=== PATIENT | female | born 1995 | race American Indian/Alaskan Native ===

== ENCOUNTER 2018-07-11 15:48 | Inpatient (IN) | payer BC, SELFPAY ==
--- NOTE | 2018-07-11 16:02 | Emergency Department Report ---
Blank Doc - Documentation Documentation: This is a 22-year-old female that presents with abdominal pain with nausea vom iting. Stated was told her PCP with enlarged spleen. Stated has history of enlarged spleen. This initial assessment/diagnostic orders/clinical plan/treatment(s) is/are subject to change based on patient's health status, clinical progression and re- assessment by fellow clinical providers in the ED. Further treatment and workup at subsequent clinical providers discretion. Patient/guardians urged not to elope from the ED as their condition may be serious if not clinically assessed and managed. Initial orders include: 1- Patient sent to MAIN for further evaluation and treatment 2- labs 3- UA
[2018-07-11 16:38] LABS: Alanine Aminotransferase 8 units/L (7-56); Albumin 4.3 g/dL (3.9-5); BUN/Creatinine Ratio 11; Blood Urea Nitrogen 9 mg/dL (7-17); Calcium 9.2 mg/dL (8.4-10.2); Hemolysis Index 4
[2018-07-11 16:40] LABS: Bilirubin,Direct < 0.2 mg/dL (0-0.2)
[2018-07-11 16:54] LABS: Hematocrit 21.2 % (30.3-42.9); Hemoglobin 6.9 gm/dl (10.1-14.3); Mean Corpuscular HGB Conc 33 % (30-34); Mean Corpuscular Volume 82 fl (79-97); Platelet Count 804 K/mm3 (140-440); Red Blood Count 2.58 M/mm3 (3.65-5.03)
[2018-07-11 17:06] LABS: Red Cell Distribution Width 22.7 % (13.2-15.2)
--- NOTE | 2018-07-11 18:33 | Emergency Department Report ---
HPI - General Chief Complaint: Abdominal Pain Time Seen by Provider: 07/11/18 16:01 - HPI HPI: 22-year-old AA female presents to the emergency department with complaint of some intermittent abdominal pain, nausea and vomiting, as well as the complaint of a very enlarged spleen. The patient has a history of CML. Last week she went to see a vascular surgeon secondary to some varicose veins that popped up. An ultrasound was done of her abdomen that showed splenomegaly at 24 cm. Patient does not have any primary care physician, policy intern oncologist. She is not currently undergoing any type of chemotherapy or radiation. She has not taken anything for her symptoms prior to presentation. ED Past Medical Hx - Past Medical History Previous Medical History?: Yes Additional medical history: leukemia - Surgical History Past Surgical History?: No - Social History Smoking Status: Never Smoker Substance Use Type: None - Medications Home Medications: Home Medications Medication Instructions Recorded Confirmed Last Taken Type No Known Home Medications [No 07/03/13 07/03/13 Unknown History Reported Home Medications] ED Review of Systems ROS: Stated complaint: ENLARGED SPLEEN/PAIN Other details as noted in HPI Comment: All other systems reviewed and negative Constitutional: denies: chills, fever Eyes: denies: eye pain, vision change ENT: denies: ear pain, throat pain Respiratory: denies: cough, shortness of breath Cardiovascular: denies: chest pain, palpitations Gastrointestinal: abdominal pain. denies: diarrhea Genitourinary: urgency. denies: dysuria, discharge Musculoskeletal: denies: back pain, arthralgia Skin: denies: rash, lesions Neurological: denies: headache, weakness Physical Exam - Physical Exam Vital Signs: Vital Signs 07/11/18 15:56 Temperature 98.3 F Pulse Rate 98 H Respiratory 16 Rate Blood Pressure 131/58 O2 Sat by Pulse 98 Oximetry Physical Exam: GENERAL: The patient is well-developed well-nourished. HEENT: Normocephalic. Atraumatic. Patient has moist mucous membranes. EYES: Extraocular motions are intact. NECK: Supple. Trachea is midline. CHEST/LUNGS: Clear to auscultation. There is no respiratory distress noted. HEART/CARDIOVASCULAR: Regular. There is no tachycardia. There is no obvious murmur. ABDOMEN: Abdomen is soft, nontender. Patient has normal bowel sounds. There is no abdominal distention. SKIN: Skin is warm and dry. NEURO: The patient is awake, alert, and oriented. The patient is cooperative. The patient has no focal neurologic deficits. The patient has normal speech. MUSCULOSKELETAL: There is no tenderness or deformity. There is no limitation range of motion. There is no evidence of acute injury. ED Course Vital Signs 07/11/18 15:56 Temperature 98.3 F Pulse Rate 98 H Respiratory 16 Rate Blood Pressure 131/58 O2 Sat by Pulse 98 Oximetry - Consultations Consultation #1: 07/11/18 22:44 I spoke to the policy intern/oncologist professor of public administration, Dr. Reese regarding this patient. He will consult on the patient. He asked for a uric acid level, phosphorus, magnesium, an LDH level to be obtained. He recommended giving 500 mg of hydroxyurea 1. He suggested rechecking a CBC and if the hemoglobin drops below 6.5 to give one unit of packed red blood cells as a transfusion. ED Medical Decision Making - Lab Data Result diagrams: 07/11/18 22:02 07/11/18 16:09 - Radiology Data Radiology results: report reviewed PROCEDURE: CT ABDOMEN PELVIS W CON HISTORY: Abd pain, hx of splenomegaly FINDINGS: Contrast-enhanced CT of the abdomen and pelvis was performed following the intravenous administration of iodinated contrast. No prior study is available for comparison. The heart is normal in size. The lung bases appear clear. ABDOMEN: No suspect focal hepatic lesion is seen. The liver is enlarged extending for 23.9 cm along the long axis of the body. The spleen is extremely large, measuring 17.7 x 8.6 x 26.8 cm. No suspect focal splenic mass is identified. Clinical correlation is advised to evaluate for potential glycogen storage disease or other noncirrhotic cause of hepatosplenomegaly. The gallbladder is unremarkable. No focal pancreatic lesion is seen. The adrenal glands are within normal limits. The left kidney is medially displaced by the greatly enlarged spleen. No renal abnormality is seen. The abdominal aorta is normal in size. There is no hemoperitoneum. Pelvis: There is a normal appendix. There is no evidence of diverticulitis. There is no adnexal mass. The urinary bladder is within normal limits. IMPRESSION: ABDOMEN: Hepatomegaly Marked splenomegaly Pelvis: No evidence of diverticulitis This document is electronically signed by David Ryan MD., July 11 2018 09:06:14 PM ET Transcribed By: NARCISA Dictated By: DAVID RYAN MD Electronically Authenticated By: DAVID RYAN MD Signed Date/Time: 07/11/182107 - Medical Decision Making This patient originally came in secondary to a ultrasound at her vascular surgeon's office showing severe splenomegaly. As part of workup here she was found have a extremely elevated leukocytosis of 380,000 as well as thrombocytosis and anemia with a hemoglobin of 6.9. This appears consistent with the patient's history of CML. At this time she does not have any significant abdominal pain. A CT of the abdomen and pelvis with IV contrast was done that shows the splenomegaly measuring as long as 27 cm but otherwise no sign of infection, specific mass or lesions. Hematology/oncology was contacted and will consult on the patient. The repeat CBC came back at 6.14 hemoglobin and therefore the patient will receive 1 unit of packed red blood cells as transfusion. The patient will be admitted to the hospital for further evaluation and treatment and was accepted for admission by the hospitalist, Dr. Ellis. - Differential Diagnosis CML, Leukemoid reaction, Mononucleosis Critical Care Time: Yes Critical care time in (mins) excluding proc time.: 35 Critical care attestation.: If time is entered above; I have spent that time in minutes in the direct care of this critically ill patient, excluding procedure time. Critical care time spent on this patient during her initial evaluation, multiple re-evaluations, ordering and interpretation of labs and imaging, discussion with the hospitalist, discussion with the oncologist/policy intern, discussion with the family. This patient has a higher probability of clinically significant, sudden, or life-threatening deterioration that has required multiple evaluations and direct attention, intervention, and management. Critical Care Time: 35 minutes ED Disposition Clinical Impression: CML (chronic myelocytic leukemia), Splenomegaly Leukocytosis Qualifiers: Leukocytosis type: unspecified Qualified Code(s): D72.829 - Elevated white blood cell count, unspecified Disposition: OP ADMIT IP TO THIS HOSP Is pt being admited?: No Condition: Serious Instructions: Abdominal Pain (ED) Referrals: ALONDRA LAI MD [Primary Care Provider] - 3-5 Days Time of Disposition: 22:50
[2018-07-11 19:49] LABS: Uric Acid 5.6 mg/dL (3.5-7.6)
[2018-07-11] MEDS ORDERED: NACL 0.9% 1000 ML 1,000 ML IV ONE (19:57)
[2018-07-11 20:19] LABS: Band Neutrophils # (Manual) 7.6 K/mm3; Basophils % (Manual) 0 % (0.0-1.8); Myelocytes # (Manual) 38.1 K/mm3; RBC Morphology Normal; Total Cells Counted 100
--- NOTE | 2018-07-11 21:08 | Cat Scan Report ---
PROCEDURE: CT ABDOMEN PELVIS W CON HISTORY: Abd pain, hx of splenomegaly FINDINGS: Contrast-enhanced CT of the abdomen and pelvis was performed following the intravenous administration of iodinated contrast. No prior study is available for comparison. The heart is normal in size. The lung bases appear clear. ABDOMEN: No suspect focal hepatic lesion is seen. The liver is enlarged extending for 23.9 cm along t he long axis of the body. The spleen is extremely large, measuring 17.7 x 8.6 x 26.8 cm. No suspect focal splenic mass is ident ified. Clinical correlation is advised to evaluate for potential glycogen storage disease or other no ncirrhotic cause of hepatosplenomegaly. The gallbladder is unremarkable. No focal pancreatic lesion is seen. The adrenal glands are within normal limits. The left kidney is medially displaced by the greatly enl arged spleen. No renal abnormality is seen. The abdominal aorta is normal in size. There is no hemoperitoneum. Pelvis: There is a normal appendix. There is no evidence of diverticulitis. There is no adnexal mass. The uri nary bladder is within normal limits. IMPRESSION: ABDOMEN: Hepatomegaly Marked splenomegaly Pelvis: No evidence of diverticulitis This document is electronically signed by Vel Ryan MD., July 11 2018 09:06:14 PM ET
[2018-07-11 21:30] LABS: Bilirubin,Urine NEG (Negative); Blood,Urine NEG (Negative); Color,Urine Straw (Yellow); Mucus,Urine FEW /HPF; Protein,Urine <15 mg/dL mg/dL (Negative); Urobilinogen,Urine < 2.0 mg/dL (<2.0)
[2018-07-11] MEDS ORDERED: HYDREA PO SCH (22:00)
[2018-07-11 22:24] LABS: Hemoglobin 6.1 gm/dl (10.1-14.3); Mean Corpuscular HGB Conc 32 % (30-34); Mean Corpuscular Volume 80 fl (79-97); Platelet Count 778 K/mm3 (140-440)
[2018-07-11 22:30] LABS: Hematocrit 19.3 % (30.3-42.9); Red Cell Distribution Width 22.3 % (13.2-15.2)
[2018-07-11] MEDS ORDERED: SODIUM CHLORIDE FLUSH SYRINGE 10 ML IV PRN (22:35)
[2018-07-11] MEDS ORDERED: TYLENOL PO PRN (22:35)
[2018-07-11] MEDS ORDERED: PERCOCET 5/325 PO PRN (22:35)
[2018-07-11] MEDS ORDERED: ZOFRAN IV PRN (22:35)
[2018-07-11] MEDS ORDERED: NACL 0.9% 500 ML 500 ML IV ONE (22:40)
--- NOTE | 2018-07-11 23:59 | History and Physical Report ---
History of Present Illness Date of examination: 07/11/18 Date of admission: 07/11/18 22:35 Chief complaint: Nausea without vomiting History of present illness: Patient is a 22-year-old -[place] female with a history of CML who presented to the ED on account of one month history of nausea without vomiting. She has associated left lower abdominal pain, urinary frequency and urgency. She denies fever, chills, constipation or diarrhea. No chest pain, shortness of breath, palpitation, cough, sore throat, runny nose or congestion, leg swelling, orthopnea or PND. No headaches, lightheadedness, syncope or loss of consciousness. Patient stated that she was recently found to have enlarged spleen during an evaluation for varicose vein. Past History Past Medical History: other (CML status post chemotherapy in remission since 2016, varicose vein, history of blood transfusion) Past Surgical History: No surgical history Social history: no significant social history (she denies tobacco, alcohol or illicit drug use) Family history: other (reviewed and noncontributory) Medications and Allergies Allergies Allergy/AdvReac Type Severity Reaction Status Date / Time No Known Allergies Allergy Unverified 07/03/13 08:29 Home Medications Medication Instructions Recorded Confirmed Last Taken Type No Known Home Medications [No 07/03/13 07/03/13 Unknown History Reported Home Medications] Active Meds: Active Medications Acetaminophen (Tylenol) 650 mg PO Q4H PRN PRN Reason: Pain MILD(1-3)/Fever >100.5/COOK Hydroxyurea (Hydrea) 500 mg PO QDAY [facility] Last Admin: 07/11/18 23:23 Dose: 500 mg Documented by: Ondansetron HCl (Zofran) 4 mg IV Q8H PRN PRN Reason: Nausea And Vomiting Oxycodone/Acetaminophen (Percocet 5/325) 1 tab PO Q6H PRN PRN Reason: Pain, Moderate (4-6) Sodium Chloride (Sodium Chloride Flush Syringe 10 Ml) 10 ml IV BID JOEL Sodium Chloride (Sodium Chloride Flush Syringe 10 Ml) 10 ml IV PRN PRN PRN Reason: LINE FLUSH Review of Systems All systems: negative (except as documented in the HPI, all other systems were reviewed and negative) Exam - Constitutional Vitals: Temp Pulse Resp BP Pulse Ox 98.5 F 96 H 16 123/54 98 07/11/18 18:47 07/11/18 20:30 07/11/18 20:30 07/11/18 20:30 07/11/18 20:30 General appearance: Present: no acute distress - EENT Eyes: Present: PERRL, EOM intact ENT: hearing intact, clear oral mucosa - Neck Neck: Present: supple, normal ROM - Respiratory Respiratory effort: normal Respiratory: bilateral: CTA - Cardiovascular Rhythm: regular Heart Sounds: Present: S1 & S2. Absent: rub, click - Extremities Extremities: No edema Peripheral Pulses: within normal limits - Abdominal General gastrointestinal: Present: soft, tender (LT LQ), non-distended, normal bowel sounds Female genitourinary: Present: deferred - Integumentary Integumentary: Present: clear, warm, dry - Musculoskeletal Musculoskeletal: gait normal, strength equal bilaterally - Psychiatric Psychiatric: appropriate mood/affect, intact judgment & insight - Neurologic Neurologic: CNII-XII intact, moves all extremities Results - Labs CBC & Chem 7: 07/11/18 22:02 07/11/18 16:09 Labs: Laboratory Last Values WBC 360.1 K/mm3 (4.5-11.0) H* 07/11/18 22:02 RBC 2.40 M/mm3 (3.65-5.03) L 07/11/18 22:02 Hgb 6.1 gm/dl (10.1-14.3) L 07/11/18 22:02 Hct 19.3 % (30.3-42.9) L* 07/11/18 22:02 MCV 80 fl (79-97) 07/11/18 22:02 MCH 25 pg (28-32) L 07/11/18 22:02 MCHC 32 % (30-34) 07/11/18 22:02 RDW 22.3 % (13.2-15.2) H 07/11/18 22:02 Plt Count 778 K/mm3 (140-440) H 07/11/18 22:02 Lymph # Talkback Host 07/11/18 16:09 Add Manual Diff Complete 07/11/18 16:09 Total Counted 100 07/11/18 16:09 Seg Neutrophils % Talkback Host 07/11/18 16:09 Seg Neuts % (Manual) 58.0 % (40.0-70.0) 07/11/18 16:09 Band Neutrophils % 2.0 % 07/11/18 16:09 Lymphocytes % (Manual) 3.0 % (13.4-35.0) L 07/11/18 16:09 Reactive Lymphs % (Man) 0 % 07/11/18 16:09 Monocytes % (Manual) 4.0 % (0.0-7.3) 07/11/18 16:09 Eosinophils % (Manual) 0 % (0.0-4.3) 07/11/18 16:09 Basophils % (Manual) 0 % (0.0-1.8) 07/11/18 16:09 Metamyelocytes % 0 % 07/11/18 16:09 Myelocytes % 10.0 % 07/11/18 16:09 Promyelocytes % 5.0 % 07/11/18 16:09 Blast Cells % 18.0 % 07/11/18 16:09 Nucleated RBC % Not Reportable 07/11/18 16:09 Seg Neutrophils # Man 220.9 K/mm3 (1.8-7.7) H 07/11/18 16:09 Band Neutrophils # 7.6 K/mm3 07/11/18 16:09 Lymphocytes # (Manual) 11.4 K/mm3 (1.2-5.4) H 07/11/18 16:09 Abs React Lymphs (Man) 0.0 K/mm3 07/11/18 16:09 Monocytes # (Manual) 15.2 K/mm3 (0.0-0.8) H 07/11/18 16:09 Eosinophils # (Manual) 0.0 K/mm3 (0.0-0.4) 07/11/18 16:09 Basophils # (Manual) 0.0 K/mm3 (0.0-0.1) 07/11/18 16:09 Metamyelocytes # 0.0 K/mm3 07/11/18 16:09 Myelocytes # 38.1 K/mm3 07/11/18 16:09 Promyelocytes # 19.0 K/mm3 07/11/18 16:09 Blast Cells # 0.2 K/mm3 07/11/18 16:09 WBC Morphology Not Reportable 07/11/18 16:09 Hypersegmented Neuts Not Reportable 07/11/18 16:09 Hyposegmented Neuts Not Reportable 07/11/18 16:09 Hypogranular Neuts Not Reportable 07/11/18 16:09 Smudge Cells Not Reportable 07/11/18 16:09 Toxic Granulation Not Reportable 07/11/18 16:09 Toxic Vacuolation Not Reportable 07/11/18 16:09 Dohle Bodies Not Reportable 07/11/18 16:09 Pelger-Huet Anomaly Not Reportable 07/11/18 16:09 Alta Rods Not Reportable 07/11/18 16:09 Platelet Estimate Not Reportable 07/11/18 16:09 Clumped Platelets Not Reportable 07/11/18 16:09 Plt Clumps, EDTA Not Reportable 07/11/18 16:09 Large Platelets Not Reportable 07/11/18 16:09 Giant Platelets Not Reportable 07/11/18 16:09 Platelet Satelliting Not Reportable 07/11/18 16:09 Plt Morphology Comment Not Reportable 07/11/18 16:09 RBC Morphology Normal 07/11/18 16:09 Dimorphic RBCs Not Reportable 07/11/18 16:09 Polychromasia Not Reportable 07/11/18 16:09 Hypochromasia Not Reportable 07/11/18 16:09 Poikilocytosis Not Reportable 07/11/18 16:09 Anisocytosis Not Reportable 07/11/18 16:09 Microcytosis Not Reportable 07/11/18 16:09 Macrocytosis Not Reportable 07/11/18 16:09 Spherocytes Not Reportable 07/11/18 16:09 Pappenheimer Bodies Not Reportable 07/11/18 16:09 Sickle Cells Not Reportable 07/11/18 16:09 Target Cells Not Reportable 07/11/18 16:09 Tear Drop Cells Not Reportable 07/11/18 16:09 Ovalocytes Not Reportable 07/11/18 16:09 Helmet Cells Not Reportable 07/11/18 16:09 Flowers-Bunker Bodies Not Reportable 07/11/18 16:09 [place] Rings Not Reportable 07/11/18 16:09 Pelon Cells Not Reportable 07/11/18 16:09 Bite Cells Not Reportable 07/11/18 16:09 Crenated Cell Not Reportable 07/11/18 16:09 Elliptocytes Not Reportable 07/11/18 16:09 Acanthocytes (Spur) Not Reportable 07/11/18 16:09 Rouleaux Not Reportable 07/11/18 16:09 Hemoglobin C Crystals Not Reportable 07/11/18 16:09 Schistocytes Not Reportable 07/11/18 16:09 Malaria parasites Not Reportable 07/11/18 16:09 Jeronimo Bodies Not Reportable 07/11/18 16:09 Hem Pathologist Commnt Sent to pathology 07/11/18 16:09 Sodium 140 mmol/L (137-145) 07/11/18 16:09 Potassium 4.4 mmol/L (3.6-5.0) 07/11/18 16:09 Chloride 101.7 mmol/L (98-107) 07/11/18 16:09 Carbon Dioxide 27 mmol/L (22-30) 07/11/18 16:09 Anion Gap 16 mmol/L 07/11/18 16:09 BUN 9 mg/dL (7-17) 07/11/18 16:09 Creatinine 0.8 mg/dL (0.7-1.2) 07/11/18 16:09 Estimated GFR > 60 ml/min 07/11/18 16:09 BUN/Creatinine Ratio 11 % 07/11/18 16:09 Glucose 91 mg/dL (65-100) 07/11/18 16:09 Uric Acid 5.6 mg/dL (3.5-7.6) 07/11/18 18:30 Calcium 9.2 mg/dL (8.4-10.2) 07/11/18 16:09 Phosphorus 4.10 mg/dL (2.5-4.5) 07/11/18 18:30 Magnesium 2.30 mg/dL (1.7-2.3) 07/11/18 18:30 Total Bilirubin 0.40 mg/dL (0.1-1.2) 07/11/18 16:09 Direct Bilirubin < 0.2 mg/dL (0-0.2) 07/11/18 16:09 Indirect Bilirubin 0.2 mg/dL 07/11/18 16:09 AST 28 units/L (5-40) 07/11/18 16:09 ALT 8 units/L (7-56) 07/11/18 16:09 Alkaline Phosphatase 89 units/L (35-129) 07/11/18 16:09 Lactate Dehydrogenase 1215 units/L (91-180) H 07/11/18 18:30 Total Protein 8.1 g/dL (6.3-8.2) 07/11/18 16:09 Albumin 4.3 g/dL (3.9-5) 07/11/18 16:09 Albumin/Globulin Ratio 1.1 % 07/11/18 16:09 Lipase 24 units/L (13-60) 07/11/18 16:09 HCG, Qual Negative (Negative) 07/11/18 16:09 Urine Color Straw (Yellow) 07/11/18 20:30 Urine Turbidity Clear (Clear) 07/11/18 20:30 Urine pH 7.0 (5.0-7.0) 07/11/18 20:30 Ur Specific [place] > 1.030 (1.003-1.030) H 07/11/18 20:30 Urine Protein <15 mg/dl mg/dL (Negative) 07/11/18 20:30 Urine Glucose (UA) Neg mg/dL (Negative) 07/11/18 20:30 Urine Ketones Neg mg/dL (Negative) 07/11/18 20:30 Urine Blood Neg (Negative) 07/11/18 20:30 Urine Nitrite Neg (Negative) 07/11/18 20:30 Urine Bilirubin Neg (Negative) 07/11/18 20:30 Urine Urobilinogen < 2.0 mg/dL (<2.0) 07/11/18 20:30 Ur Leukocyte Esterase Neg (Negative) 07/11/18 20:30 Urine WBC (Auto) 2.0 /HPF (0.0-6.0) 07/11/18 20:30 Urine RBC (Auto) 1.0 /HPF (0.0-6.0) 07/11/18 20:30 U Epithel Cells (Auto) 3.0 /HPF (0-13.0) 07/11/18 20:30 Urine Mucus Few /HPF 07/11/18 20:30 Blood Type A POSITIVE 07/11/18 18:30 Antibody Screen Negative 07/11/18 18:30 Crossmatch See Detail 07/11/18 18:30 Assessment and Plan Assessment and plan: CML with possible progression to acute phase -Oncology consulted in the ED and he recommended stating hydroxyurea -Further management by the oncology Acute on chronic anemia -Patient is to receive 1 unit of packed red blood cell -We will monitor H&H Massive hepatosplenomegaly DVT prophylaxis with SCD Disposition: For discharge when medically stable Time spent: 35 minutes
[2018-07-12] MEDS ORDERED: NACL 0.9% 500 ML 500 ML ONE (00:39)
[2018-07-12 08:46] LABS: Hematocrit 22.1 % (30.3-42.9); Hemoglobin 7.3 gm/dl (10.1-14.3); Mean Corpuscular HGB Conc 33 % (30-34); Mean Corpuscular Volume 82 fl (79-97); Platelet Count 727 K/mm3 (140-440)
[2018-07-12 08:53] LABS: Red Cell Distribution Width 21.9 % (13.2-15.2)
[2018-07-12 10:06] LABS: Band Neutrophils # (Manual) 14.1 K/mm3; Basophils % (Manual) 0 % (0.0-1.8); Eosinophils % (Manual) 0 % (0.0-4.3); Myelocytes # (Manual) 52.8 K/mm3; Promyelocytes # (Manual) 17.6 K/mm3; Total Cells Counted 100
[2018-07-12 10:07] LABS: Anisocytosis 1+; Platelet Estimate Consistent w Auto; Poikilocytosis 1+
[2018-07-12] MEDS: SODIUM CHLORIDE FLUSH SYRINGE 10 ML IV SCH (10:30)
[2018-07-12] MEDS: ZYLOPRIM PO SCH ×3 (10:58→21:23)
[2018-07-12] MEDS: HYDREA PO SCH ×3 (10:58→21:24)
--- NOTE | 2018-07-12 12:39 | Progress Note ---
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 Oncology consulted in the ED and he recommended stating hydroxyurea Pending oncology evaluation and recommendations Further management by the oncology --Acute on chronic anemia: Patient received 1 unit PRBC, Hb improved to 6.1-7.3 Transfusion additional PRBC as needed --Massive hepatosplenomegaly: Supportive care --DVT prophylaxis with SCD Disposition: Hematology oncology evaluation and recommendations We'll closely monitor the patient and adjust the management as needed; Plan of care is reviewed with the patient, mother at the bedside And her nurse History Interval history: Patient seen and examined medical records reviewed 22-year-old female patient with history of CML was admitted through emergency room with nausea abdominal pain and urinary symptoms,Patient is on empiric antibiotics, hematology was consulted. Today patient feels slightly better. History of mild nausea no vomiting Alert awake oriented Vital signs reviewed Hospitalist Physical - Constitutional Vitals: Temp Pulse Resp BP Pulse Ox 98.1 F 88 19 121/62 95 07/12/18 09:00 07/12/18 11:20 07/12/18 11:20 07/12/18 11:20 07/12/18 11:20 General appearance: Present: no acute distress, well-nourished - EENT Eyes: Present: PERRL, EOM intact - Neck Neck: Present: supple, normal ROM - Respiratory Respiratory effort: normal Respiratory: bilateral: diminished, negative: rales, rhonchi, wheezing - Cardiovascular Rhythm: regular Heart Sounds: Present: S1 & S2 - Extremities Extremities: no ischemia, No edema - Abdominal General gastrointestinal: soft, non-tender, non-distended, normal bowel sounds - Integumentary Integumentary: Present: clear, warm - Psychiatric Psychiatric: appropriate mood/affect, cooperative - Neurologic Neurologic: CNII-XII intact, moves all extremities Results - Labs CBC & Chem 7: 07/12/18 08:13 07/11/18 16:09 Labs: Laboratory Last Values WBC 351.9 K/mm3 (4.5-11.0) H* 07/12/18 08:13 RBC 2.70 M/mm3 (3.65-5.03) L 07/12/18 08:13 Hgb 7.3 gm/dl (10.1-14.3) L 07/12/18 08:13 Hct 22.1 % (30.3-42.9) L 07/12/18 08:13 MCV 82 fl (79-97) 07/12/18 08:13 MCH 27 pg (28-32) L 07/12/18 08:13 MCHC 33 % (30-34) 07/12/18 08:13 RDW 21.9 % (13.2-15.2) H 07/12/18 08:13 Plt Count 727 K/mm3 (140-440) H 07/12/18 08:13 Lymph # Die Press Operator 07/11/18 16:09 Add Manual Diff Complete 07/12/18 08:13 Total Counted 100 07/12/18 08:13 Seg Neutrophils % Die Press Operator 07/12/18 08:13 Seg Neuts % (Manual) 53.0 % (40.0-70.0) 07/12/18 08:13 Band Neutrophils % 4.0 % 07/12/18 08:13 Lymphocytes % (Manual) 4.0 % (13.4-35.0) L 07/12/18 08:13 Reactive Lymphs % (Man) 0 % 07/12/18 08:13 Monocytes % (Manual) 2.0 % (0.0-7.3) 07/12/18 08:13 Eosinophils % (Manual) 0 % (0.0-4.3) 07/12/18 08:13 Basophils % (Manual) 0 % (0.0-1.8) 07/12/18 08:13 Metamyelocytes % 2.0 % 07/12/18 08:13 Myelocytes % 15.0 % 07/12/18 08:13 Promyelocytes % 5.0 % 07/12/18 08:13 Blast Cells % 15.0 % 07/12/18 08:13 Nucleated RBC % Not Reportable 07/12/18 08:13 Seg Neutrophils # Man 186.5 K/mm3 (1.8-7.7) H 07/12/18 08:13 Band Neutrophils # 14.1 K/mm3 07/12/18 08:13 Lymphocytes # (Manual) 14.1 K/mm3 (1.2-5.4) H 07/12/18 08:13 Abs React Lymphs (Man) 0.0 K/mm3 07/12/18 08:13 Monocytes # (Manual) 7.0 K/mm3 (0.0-0.8) H 07/12/18 08:13 Eosinophils # (Manual) 0.0 K/mm3 (0.0-0.4) 07/12/18 08:13 Basophils # (Manual) 0.0 K/mm3 (0.0-0.1) 07/12/18 08:13 Metamyelocytes # 7.0 K/mm3 07/12/18 08:13 Myelocytes # 52.8 K/mm3 07/12/18 08:13 Promyelocytes # 17.6 K/mm3 07/12/18 08:13 Blast Cells # 0.5 K/mm3 07/12/18 08:13 WBC Morphology Not Reportable 07/12/18 08:13 Hypersegmented Neuts Not Reportable 07/12/18 08:13 Hyposegmented Neuts Not Reportable 07/12/18 08:13 Hypogranular Neuts Not Reportable 07/12/18 08:13 Smudge Cells Not Reportable 07/12/18 08:13 Toxic Granulation Not Reportable 07/12/18 08:13 Toxic Vacuolation Not Reportable 07/12/18 08:13 Dohle Bodies Not Reportable 07/12/18 08:13 Pelger-Huet Anomaly Not Reportable 07/12/18 08:13 Alta Rods Not Reportable 07/12/18 08:13 Platelet Estimate Consistent w auto 07/12/18 08:13 Clumped Platelets Not Reportable 07/12/18 08:13 Plt Clumps, EDTA Not Reportable 07/12/18 08:13 Large Platelets Not Reportable 07/12/18 08:13 Giant Platelets Not Reportable 07/12/18 08:13 Platelet Satelliting Not Reportable 07/12/18 08:13 Plt Morphology Comment Not Reportable 07/12/18 08:13 RBC Morphology Not Reportable 07/12/18 08:13 Dimorphic RBCs Not Reportable 07/12/18 08:13 Polychromasia Not Reportable 07/12/18 08:13 Hypochromasia Not Reportable 07/12/18 08:13 Poikilocytosis 1+ 07/12/18 08:13 Anisocytosis 1+ 07/12/18 08:13 Microcytosis Not Reportable 07/12/18 08:13 Macrocytosis Not Reportable 07/12/18 08:13 Spherocytes Not Reportable 07/12/18 08:13 Pappenheimer Bodies Not Reportable 07/12/18 08:13 Sickle Cells Not Reportable 07/12/18 08:13 Target Cells Not Reportable 07/12/18 08:13 Tear Drop Cells Not Reportable 07/12/18 08:13 Ovalocytes Not Reportable 07/12/18 08:13 Helmet Cells Not Reportable 07/12/18 08:13 Flowers-[place] Bodies Not Reportable 07/12/18 08:13 [place] Rings Not Reportable 07/12/18 08:13 [place] Cells Not Reportable 07/12/18 08:13 Bite Cells Not Reportable 07/12/18 08:13 Crenated Cell Not Reportable 07/12/18 08:13 Elliptocytes Not Reportable 07/12/18 08:13 Acanthocytes (Spur) Not Reportable 07/12/18 08:13 Rouleaux Not Reportable 07/12/18 08:13 Hemoglobin C Crystals Not Reportable 07/12/18 08:13 Schistocytes Not Reportable 07/12/18 08:13 Malaria parasites Not Reportable 07/12/18 08:13 Jeronimo Bodies Not Reportable 07/12/18 08:13 Hem Pathologist Commnt No 07/12/18 08:13 Sodium 140 mmol/L (137-145) 07/11/18 16:09 Potassium 4.4 mmol/L (3.6-5.0) 07/11/18 16:09 Chloride 101.7 mmol/L (98-107) 07/11/18 16:09 Carbon Dioxide 27 mmol/L (22-30) 07/11/18 16:09 Anion Gap 16 mmol/L 07/11/18 16:09 BUN 9 mg/dL (7-17) 07/11/18 16:09 Creatinine 0.8 mg/dL (0.7-1.2) 07/11/18 16:09 Estimated GFR > 60 ml/min 07/11/18 16:09 BUN/Creatinine Ratio 11 % 07/11/18 16:09 Glucose 91 mg/dL (65-100) 07/11/18 16:09 Uric Acid 5.6 mg/dL (3.5-7.6) 07/11/18 18:30 Calcium 9.2 mg/dL (8.4-10.2) 07/11/18 16:09 Phosphorus 4.10 mg/dL (2.5-4.5) 07/11/18 18:30 Magnesium 2.30 mg/dL (1.7-2.3) 07/11/18 18:30 Total Bilirubin 0.40 mg/dL (0.1-1.2) 07/11/18 16:09 Direct Bilirubin < 0.2 mg/dL (0-0.2) 07/11/18 16:09 Indirect Bilirubin 0.2 mg/dL 07/11/18 16:09 AST 28 units/L (5-40) 07/11/18 16:09 ALT 8 units/L (7-56) 07/11/18 16:09 Alkaline Phosphatase 89 units/L (35-129) 07/11/18 16:09 Lactate Dehydrogenase 1215 units/L (91-180) H 07/11/18 18:30 Total Protein 8.1 g/dL (6.3-8.2) 07/11/18 16:09 Albumin 4.3 g/dL (3.9-5) 07/11/18 16:09 Albumin/Globulin Ratio 1.1 % 07/11/18 16:09 Lipase 24 units/L (13-60) 07/11/18 16:09 HCG, Qual Negative (Negative) 07/11/18 16:09 Urine Color Straw (Yellow) 07/11/18 20:30 Urine Turbidity Clear (Clear) 07/11/18 20:30 Urine pH 7.0 (5.0-7.0) 07/11/18 20:30 Ur Specific [place] > 1.030 (1.003-1.030) H 07/11/18 20:30 Urine Protein <15 mg/dl mg/dL (Negative) 07/11/18 20:30 Urine Glucose (UA) Neg mg/dL (Negative) 07/11/18 20:30 Urine Ketones Neg mg/dL (Negative) 07/11/18 20:30 Urine Blood Neg (Negative) 07/11/18 20:30 Urine Nitrite Neg (Negative) 07/11/18 20:30 Urine Bilirubin Neg (Negative) 07/11/18 20:30 Urine Urobilinogen < 2.0 mg/dL (<2.0) 07/11/18 20:30 Ur Leukocyte Esterase Neg (Negative) 07/11/18 20:30 Urine WBC (Auto) 2.0 /HPF (0.0-6.0) 07/11/18 20:30 Urine RBC (Auto) 1.0 /HPF (0.0-6.0) 07/11/18 20:30 U Epithel Cells (Auto) 3.0 /HPF (0-13.0) 07/11/18 20:30 Urine Mucus Few /HPF 07/11/18 20:30 Blood Type A POSITIVE 07/11/18 18:30 Antibody Screen Negative 07/11/18 18:30 Crossmatch See Detail 07/11/18 18:30 Active Medications - Current Medications Current Medications: Generic Name Dose Route Start Last Admin Trade Name Freq PRN Reason Stop Dose Admin Acetaminophen 650 mg 07/11/18 22:35 Tylenol PO Q4H PRN Pain MILD(1-3)/Fever >100.5/COOK Allopurinol 100 mg 07/12/18 09:30 07/12/18 10:58 Zyloprim PO 100 mg TID JOEL Administration Hydroxyurea 500 mg 07/12/18 09:30 07/12/18 10:58 Hydrea PO 500 mg TID JOEL Administration Ondansetron HCl 4 mg 07/11/18 22:35 Zofran IV Q8H PRN Nausea And Vomiting Oxycodone/Acetaminophen 1 tab 07/11/18 22:35 Percocet 5/325 PO Q6H PRN Pain, Moderate (4-6) Sodium Chloride 10 ml 07/12/18 10:00 07/12/18 10:30 Sodium Chloride Flush Syringe 10 Ml IV 10 ml BID JOEL Administration Sodium Chloride 10 ml 07/11/18 22:35 Sodium Chloride Flush Syringe 10 Ml IV PRN PRN LINE FLUSH
[2018-07-12 19:10] LABS: Eosinophils % (Manual) 2 % (0.0-4.3)
[2018-07-12 19:23] LABS: Monocytes % (Manual) 0 % (0.0-7.3)
--- NOTE | 2018-07-13 05:17 | Event Note ---
Date: 07/12/18 [id number]
--- NOTE | 2018-07-13 05:47 | Consultation ---
REFERRED BY: Angel Gomez DO/Ros Devries MD REASON FOR CONSULTATION: History of CML. HISTORY OF PRESENT ILLNESS: I saw the patient, a 22-year-old female in the Emergency Room while she was waiting for bed placement. In 2013, she was at [facility] and as the white cell count was high, she was transferred to [facility], diagnosed with CML and she was placed on nilotinib, which she took for a few years and then stopped. She has been going to college. She came to the hospital because of abdominal discomfort and urinary frequency. No history of fever, chills, no chest pain, no shortness of breath, no palpitation, no cough, no headache. No hematemesis, no hematochezia. No other bleeding issues. No seizure or syncope. During this admission, the patient was found to have splenomegaly. Before, the patient had gone to vascular surgeon for varicose vein evaluation. During that time, Radiology showed splenomegaly. During that time, she was found to have splenomegaly and with that she came to the hospital because of abdominal discomfort and history of splenomegaly. At this time, the patient has received one dose of Hydrea. PAST MEDICAL HISTORY: 1. CML, the patient was on nilotinib, was diagnosed in 2013 and she has not taken this medication from about 2015. 2. History of varicose vein. 3. History of blood transfusion. PAST SURGICAL HISTORY: None. SOCIAL HISTORY: No history of tobacco or alcohol usage. Has been going to college. FAMILY HISTORY: Noncontributory. ALLERGIES: None. HOME MEDICATIONS: None. PRESENT MEDICATIONS: Include Hydrea, Zofran. PHYSICAL EXAMINATION: VITAL SIGNS: Temperature is 100, pulse 89, respirations 16, BP 126/60. HEENT: Pallor present. No icterus. NECK: No neck lymph nodes. HEART: S1, S2. LUNGS: Clear to auscultation. ABDOMEN: Splenomegaly present. EXTREMITIES: No calf tenderness. NEUROLOGIC: Alert, awake, oriented. LABORATORY DATA: White cell ____, hemoglobin 6.9, MCV 82, platelet 804. Potassium 4.4, creatinine 0.8, calcium 9.2, LDH ____, uric acid 5.6, magnesium 2.3, phosphorus 4.1, bilirubin 0.4. RADIOLOGY: CT abdomen shows spleen of 26 cm, hepatomegaly. ASSESSMENT AND PLAN: 1. History of chronic myelogenous leukemia. 2. History of leukocytosis. Blood smear has myelocytes, metamyelocytes, promyelocytes, and blasts. 3. Hepatomegaly. 4. Splenomegaly. I discussed with the patient and her mother regarding hydroxyurea, allopurinol, nilotinib. 5. Transfusion support with caution. 6. 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 7. We will follow the trend of the labs and later in the clinic. If need, we will refer her to [facility], as she does not have insurance and this is making challenging for her. The presence of blasts make it challenging. 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 JOB# [id number] NM/NTS
--- NOTE | 2018-07-13 07:42 | Hem/Onc Progress Note ---
Assessment and Plan 1. History of chronic myelogenous leukemia. 2. History of leukocytosis. Blood smear has myelocytes, metamyelocytes, prom yelocytes, and blasts. 3. Hepatomegaly. 4. Splenomegaly. I discussed with the patient and her mother regarding hydroxyurea, allopurinol, nilotinib. 5. Transfusion support with caution. 6. 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 7. We will follow the trend of the labs and later in the clinic. If need, we will refer her to [place], as she does not have insurance and this is making challenging for her. The presence of blasts make it challenging. 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 d/w dr antunez pt was keen to go home - we will await for flow as per dr antunez - path discussed about BMBx nilotinib - samples given to pt - 300 mg PO BID - pt was on this before 2015. ct hydrea - allopurinol s/p PRBC - high plt - high WBC - Patient Problems (1) CML (chronic myelocytic leukemia) Current Visit: Yes Status: Acute Subjective Date of service: 07/13/18 Principal diagnosis: CML with blasts Interval history: wants to go home Objective - Constitutional Vitals: Last Vital Signs Temp 98.3 F 07/13/18 05:11 Pulse 79 07/13/18 05:16 Resp 16 07/13/18 05:11 BP 109/49 07/13/18 05:11 Pulse Ox 96 07/13/18 05:16 Pain Intensity (0-10): denies any pain General appearance: no acute distress Performance status: 2- selfcare, ambulatory - Neck Neck: normal ROM - Respiratory Respiratory effort: Positive: normal Respiratory: bilateral: CTA - Cardiovascular Heart Sounds: Present: S1 & S2 Extremities: No edema - Gastrointestinal General gastrointestinal: Present: soft, hepatomegaly, splenomegaly Rectal Exam: deferred - Genitourinary Female genitourinary: Present: deferred - Integumentary Integumentary: warm - Musculoskeletal Musculoskeletal: strength equal bilaterally - Neurologic Neurologic: moves all extremities - Labs Lab Results: Laboratory Results - last 24 hr 07/11/18 07/12/18 16:09 08:13 WBC 351.9 H* RBC 2.70 L Hgb 7.3 L Hct 22.1 L MCV 82 MCH 27 L MCHC 33 RDW 21.9 H Plt Count 727 H Add Manual Diff Complete Total Counted 100 Seg Neutrophils % Database Coordinator Seg Neuts % (Manual) 45 53.0 Band Neutrophils % 4.0 Lymphocytes % (Manual) 4.0 L Reactive Lymphs % (Man) 0 Monocytes % (Manual) 0 2.0 Eosinophils % (Manual) 2 0 Basophils % (Manual) 0 Metamyelocytes % 2.0 Myelocytes % 20 15.0 Promyelocytes % 10 5.0 Blast Cells % 15.0 Nucleated RBC % Not Reportable Seg Neutrophils # Man 186.5 H Band Neutrophils # 14.1 Lymphocytes # (Manual) 14.1 H Abs React Lymphs (Man) 0.0 Monocytes # (Manual) 7.0 H Eosinophils # (Manual) 0.0 Basophils # (Manual) 0.0 Metamyelocytes # 7.0 Myelocytes # 52.8 Promyelocytes # 17.6 Blast Cells # 0.5 Pathologist Review WBC Morphology Not Reportable Hypersegmented Neuts Not Reportable Hyposegmented Neuts Not Reportable Hypogranular Neuts Not Reportable Smudge Cells Not Reportable Toxic Granulation Not Reportable Toxic Vacuolation Not Reportable Dohle Bodies Not Reportable Pelger-Huet Anomaly Not Reportable Alta Rods Not Reportable Platelet Estimate Consistent w auto Clumped Platelets Not Reportable Plt Clumps, EDTA Not Reportable Large Platelets Not Reportable Giant Platelets Not Reportable Platelet Satelliting Not Reportable Plt Morphology Comment Not Reportable RBC Morphology Not Reportable Dimorphic RBCs Not Reportable Polychromasia Not Reportable Hypochromasia Not Reportable Poikilocytosis 1+ Anisocytosis 1+ Microcytosis Not Reportable Macrocytosis Not Reportable Spherocytes Not Reportable Pappenheimer Bodies Not Reportable Sickle Cells Not Reportable Target Cells Not Reportable Tear Drop Cells Not Reportable Ovalocytes Not Reportable Helmet Cells Not Reportable [place] Bodies Not Reportable [place] Rings Not Reportable [place] Cells Not Reportable Bite Cells Not Reportable Crenated Cell Not Reportable Elliptocytes Not Reportable Acanthocytes (Spur) Not Reportable Rouleaux Not Reportable Hemoglobin C Crystals Not Reportable Schistocytes Not Reportable Malaria parasites Not Reportable Jeronimo Bodies Not Reportable Hem Pathologist Commnt No Medications & Allergies - Medications Allergies/Adverse Reactions: Allergies No Known Allergies Allergy (Unverified 07/03/13 08:29) Home Medications: Home Medications Medication Instructions Recorded Confirmed Last Taken Type No Known Home Medications [No 07/03/13 07/03/13 Unknown History Reported Home Medications] Active Medications: Generic Name Dose Route Start Last Admin Trade Name Freq PRN Reason Stop Dose Admin Acetaminophen 650 mg 07/11/18 22:35 07/12/18 17:27 Tylenol PO 650 mg Q4H PRN Administration Pain MILD(1-3)/Fever >100.5/COOK Allopurinol 100 mg 07/12/18 09:30 07/12/18 21:23 Zyloprim PO 100 mg TID JOEL Administration Hydroxyurea 500 mg 07/12/18 09:30 07/12/18 21:24 Hydrea PO 500 mg TID JOEL Administration Ondansetron HCl 4 mg 07/11/18 22:35 Zofran IV Q8H PRN Nausea And Vomiting Oxycodone/Acetaminophen 1 tab 07/11/18 22:35 Percocet 5/325 PO Q6H PRN Pain, Moderate (4-6) Sodium Chloride 10 ml 07/12/18 10:00 07/12/18 10:30 Sodium Chloride Flush Syringe 10 Ml IV 10 ml BID JOEL Administration Sodium Chloride 10 ml 07/11/18 22:35 Sodium Chloride Flush Syringe 10 Ml IV PRN PRN LINE FLUSH
[2018-07-13 08:34] LABS: Alanine Aminotransferase 7 units/L (7-56); Albumin 3.5 g/dL (3.9-5); BUN/Creatinine Ratio 16; Blood Urea Nitrogen 11 mg/dL (7-17); Calcium 8.6 mg/dL (8.4-10.2); Hemolysis Index 2
[2018-07-13] MEDS: HYDREA PO SCH ×3 (09:02→22:27)
[2018-07-13] MEDS: ZYLOPRIM PO SCH ×3 (09:02→22:27)
--- NOTE | 2018-07-13 20:12 | Progress Note ---
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 Vallejo gave samples of this medication to the patient] --Acute on chronic anemia: Patient received 1 unit PRBC, Hb improved to 6.1-7.3 Transfusion additional PRBC as needed --Massive hepatosplenomegaly: Supportive care --DVT prophylaxis with SCD Disposition: Follow Hem/onc Recommendations Discussed with Dr. Reese Plan of care is reviewed with the patient, mother at the bedside And her nurse History Interval history: Patient seen and examined medical records reviewed Patient feels slightly better no new complaints Vital signs reviewed, not in acute distress Hematology oncology evaluation and recommendations noted appreciated Hospitalist Physical - Constitutional Vitals: Temp Pulse Resp BP Pulse Ox 98.5 F 95 H 20 112/63 98 07/13/18 17:20 07/13/18 17:20 07/13/18 17:20 07/13/18 17:20 07/13/18 17:20 General appearance: Present: no acute distress, well-nourished - EENT Eyes: Present: PERRL, EOM intact - Neck Neck: Present: supple, normal ROM - Respiratory Respiratory effort: normal Respiratory: bilateral: diminished, negative: rales, rhonchi, wheezing - Cardiovascular Rhythm: regular Heart Sounds: Present: S1 & S2 - Extremities Extremities: no ischemia, No edema - Abdominal General gastrointestinal: soft, non-tender, non-distended, normal bowel sounds - Integumentary Integumentary: Present: clear, warm - Psychiatric Psychiatric: appropriate mood/affect, cooperative - Neurologic Neurologic: CNII-XII intact, moves all extremities Results - Labs CBC & Chem 7: 07/12/18 08:13 07/13/18 07:57 Labs: Laboratory Last Values WBC 351.9 K/mm3 (4.5-11.0) H* 07/12/18 08:13 RBC 2.70 M/mm3 (3.65-5.03) L 07/12/18 08:13 Hgb 7.3 gm/dl (10.1-14.3) L 07/12/18 08:13 Hct 22.1 % (30.3-42.9) L 07/12/18 08:13 MCV 82 fl (79-97) 07/12/18 08:13 MCH 27 pg (28-32) L 07/12/18 08:13 MCHC 33 % (30-34) 07/12/18 08:13 RDW 21.9 % (13.2-15.2) H 07/12/18 08:13 Plt Count 727 K/mm3 (140-440) H 07/12/18 08:13 Lymph # Rn Diabetes Educator 07/11/18 16:09 Add Manual Diff Complete 07/12/18 08:13 Total Counted 100 07/12/18 08:13 Seg Neutrophils % Rn Diabetes Educator 07/12/18 08:13 Seg Neuts % (Manual) 53.0 % (40.0-70.0) 07/12/18 08:13 Band Neutrophils % 4.0 % 07/12/18 08:13 Lymphocytes % (Manual) 4.0 % (13.4-35.0) L 07/12/18 08:13 Reactive Lymphs % (Man) 0 % 07/12/18 08:13 Monocytes % (Manual) 2.0 % (0.0-7.3) 07/12/18 08:13 Eosinophils % (Manual) 0 % (0.0-4.3) 07/12/18 08:13 Basophils % (Manual) 0 % (0.0-1.8) 07/12/18 08:13 Metamyelocytes % 2.0 % 07/12/18 08:13 Myelocytes % 15.0 % 07/12/18 08:13 Promyelocytes % 5.0 % 07/12/18 08:13 Blast Cells % 15.0 % 07/12/18 08:13 Nucleated RBC % Not Reportable 07/12/18 08:13 Seg Neutrophils # Man 186.5 K/mm3 (1.8-7.7) H 07/12/18 08:13 Band Neutrophils # 14.1 K/mm3 07/12/18 08:13 Lymphocytes # (Manual) 14.1 K/mm3 (1.2-5.4) H 07/12/18 08:13 Abs React Lymphs (Man) 0.0 K/mm3 07/12/18 08:13 Monocytes # (Manual) 7.0 K/mm3 (0.0-0.8) H 07/12/18 08:13 Eosinophils # (Manual) 0.0 K/mm3 (0.0-0.4) 07/12/18 08:13 Basophils # (Manual) 0.0 K/mm3 (0.0-0.1) 07/12/18 08:13 Metamyelocytes # 7.0 K/mm3 07/12/18 08:13 Myelocytes # 52.8 K/mm3 07/12/18 08:13 Promyelocytes # 17.6 K/mm3 07/12/18 08:13 Blast Cells # 0.5 K/mm3 07/12/18 08:13 Pathologist Review 07/11/18 16:09 WBC Morphology Not Reportable 07/12/18 08:13 Hypersegmented Neuts Not Reportable 07/12/18 08:13 Hyposegmented Neuts Not Reportable 07/12/18 08:13 Hypogranular Neuts Not Reportable 07/12/18 08:13 Smudge Cells Not Reportable 07/12/18 08:13 Toxic Granulation Not Reportable 07/12/18 08:13 Toxic Vacuolation Not Reportable 07/12/18 08:13 Dohle Bodies Not Reportable 07/12/18 08:13 Pelger-Huet Anomaly Not Reportable 07/12/18 08:13 Alta Rods Not Reportable 07/12/18 08:13 Platelet Estimate Consistent w auto 07/12/18 08:13 Clumped Platelets Not Reportable 07/12/18 08:13 Plt Clumps, EDTA Not Reportable 07/12/18 08:13 Large Platelets Not Reportable 07/12/18 08:13 Giant Platelets Not Reportable 07/12/18 08:13 Platelet Satelliting Not Reportable 07/12/18 08:13 Plt Morphology Comment Not Reportable 07/12/18 08:13 RBC Morphology Not Reportable 07/12/18 08:13 Dimorphic RBCs Not Reportable 07/12/18 08:13 Polychromasia Not Reportable 07/12/18 08:13 Hypochromasia Not Reportable 07/12/18 08:13 Poikilocytosis 1+ 07/12/18 08:13 Anisocytosis 1+ 07/12/18 08:13 Microcytosis Not Reportable 07/12/18 08:13 Macrocytosis Not Reportable 07/12/18 08:13 Spherocytes Not Reportable 07/12/18 08:13 Pappenheimer Bodies Not Reportable 07/12/18 08:13 Sickle Cells Not Reportable 07/12/18 08:13 Target Cells Not Reportable 07/12/18 08:13 Tear Drop Cells Not Reportable 07/12/18 08:13 Ovalocytes Not Reportable 07/12/18 08:13 Helmet Cells Not Reportable 07/12/18 08:13 [place] Bodies Not Reportable 07/12/18 08:13 [place] Rings Not Reportable 07/12/18 08:13 [place] Cells Not Reportable 07/12/18 08:13 Bite Cells Not Reportable 07/12/18 08:13 Crenated Cell Not Reportable 07/12/18 08:13 Elliptocytes Not Reportable 07/12/18 08:13 Acanthocytes (Spur) Not Reportable 07/12/18 08:13 Rouleaux Not Reportable 07/12/18 08:13 Hemoglobin C Crystals Not Reportable 07/12/18 08:13 Schistocytes Not Reportable 07/12/18 08:13 Malaria parasites Not Reportable 07/12/18 08:13 [place] Bodies Not Reportable 07/12/18 08:13 Hem Pathologist Commnt No 07/12/18 08:13 Sodium 135 mmol/L (137-145) L 07/13/18 07:57 Potassium 4.3 mmol/L (3.6-5.0) 07/13/18 07:57 Chloride 99.3 mmol/L (98-107) 07/13/18 07:57 Carbon Dioxide 26 mmol/L (22-30) 07/13/18 07:57 Anion Gap 14 mmol/L 07/13/18 07:57 BUN 11 mg/dL (7-17) 07/13/18 07:57 Creatinine 0.7 mg/dL (0.7-1.2) 07/13/18 07:57 Estimated GFR > 60 ml/min 07/13/18 07:57 BUN/Creatinine Ratio 16 % 07/13/18 07:57 Glucose 85 mg/dL (65-100) 07/13/18 07:57 Uric Acid 5.6 mg/dL (3.5-7.6) 07/11/18 18:30 Calcium 8.6 mg/dL (8.4-10.2) 07/13/18 07:57 Phosphorus 4.70 mg/dL (2.5-4.5) H 07/13/18 07:57 Magnesium 1.90 mg/dL (1.7-2.3) 07/13/18 07:57 Total Bilirubin 0.40 mg/dL (0.1-1.2) 07/13/18 07:57 Direct Bilirubin < 0.2 mg/dL (0-0.2) 07/11/18 16:09 Indirect Bilirubin 0.2 mg/dL 07/11/18 16:09 AST 20 units/L (5-40) 07/13/18 07:57 ALT 7 units/L (7-56) 07/13/18 07:57 Alkaline Phosphatase 75 units/L (35-129) 07/13/18 07:57 Lactate Dehydrogenase 1215 units/L (91-180) H 07/11/18 18:30 Total Protein 6.9 g/dL (6.3-8.2) 07/13/18 07:57 Albumin 3.5 g/dL (3.9-5) L 07/13/18 07:57 Albumin/Globulin Ratio 1.0 % 07/13/18 07:57 Lipase 24 units/L (13-60) 07/11/18 16:09 HCG, Qual Negative (Negative) 07/11/18 16:09 Urine Color Straw (Yellow) 07/11/18 20:30 Urine Turbidity Clear (Clear) 07/11/18 20:30 Urine pH 7.0 (5.0-7.0) 07/11/18 20:30 Ur Specific [place] > 1.030 (1.003-1.030) H 07/11/18 20:30 Urine Protein <15 mg/dl mg/dL (Negative) 07/11/18 20:30 Urine Glucose (UA) Neg mg/dL (Negative) 07/11/18 20:30 Urine Ketones Neg mg/dL (Negative) 07/11/18 20:30 Urine Blood Neg (Negative) 07/11/18 20:30 Urine Nitrite Neg (Negative) 07/11/18 20:30 Urine Bilirubin Neg (Negative) 07/11/18 20:30 Urine Urobilinogen < 2.0 mg/dL (<2.0) 07/11/18 20:30 Ur Leukocyte Esterase Neg (Negative) 07/11/18 20:30 Urine WBC (Auto) 2.0 /HPF (0.0-6.0) 07/11/18 20:30 Urine RBC (Auto) 1.0 /HPF (0.0-6.0) 07/11/18 20:30 U Epithel Cells (Auto) 3.0 /HPF (0-13.0) 07/11/18 20:30 Urine Mucus Few /HPF 07/11/18 20:30 Blood Type A POSITIVE 07/11/18 18:30 Antibody Screen Negative 07/11/18 18:30 Crossmatch See Detail 07/11/18 18:30 Active Medications - Current Medications Current Medications: Generic Name Dose Route Start Last Admin Trade Name Freq PRN Reason Stop Dose Admin Acetaminophen 650 mg 07/11/18 22:35 07/12/18 17:27 Tylenol PO 650 mg Q4H PRN Administration Pain MILD(1-3)/Fever >100.5/COOK Allopurinol 100 mg 07/12/18 09:30 07/13/18 15:26 Zyloprim PO 100 mg TID JOEL Administration Hydroxyurea 500 mg 07/12/18 09:30 07/13/18 15:26 Hydrea PO 500 mg TID JOEL Administration Ondansetron HCl 4 mg 07/11/18 22:35 Zofran IV Q8H PRN Nausea And Vomiting Oxycodone/Acetaminophen 1 tab 07/11/18 22:35 Percocet 5/325 PO Q6H PRN Pain, Moderate (4-6) Sodium Chloride 10 ml 07/12/18 10:00 07/12/18 10:30 Sodium Chloride Flush Syringe 10 Ml IV 10 ml BID JOEL Administration Sodium Chloride 10 ml 07/11/18 22:35 Sodium Chloride Flush Syringe 10 Ml IV PRN PRN LINE FLUSH
[2018-07-13] MEDS: SODIUM CHLORIDE FLUSH SYRINGE 10 ML IV SCH (22:30)
--- NOTE | 2018-07-14 07:12 | Hem/Onc Progress Note ---
Assessment and Plan 1. History of chronic myelogenous leukemia. 2. History of leukocytosis. Blood smear has myelocytes, metamyelocytes, prom yelocytes, and blasts. 3. Hepatomegaly. 4. Splenomegaly. I discussed with the patient and her mother regarding hydroxyurea, allopurinol, nilotinib. 5. Transfusion support with caution. 6. 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 7. We will follow the trend of the labs and later in the clinic. If need, we will refer her to [place], as she does not have insurance and this is making challenging for her. The presence of blasts make it challenging. 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 d/w dr antunez pt was keen to go home - we will await for flow as per dr antunez - path discussed about BMBx nilotinib - samples given to pt - 300 mg PO BID - pt was on this before 2015. ct hydrea - allopurinol s/p PRBC - high plt - high WBC 4/4 d/w pt reg bmbx - she wants to do as OP pt can be d/alex d/w mother pt would need OP labs and follow up. ct hydrea for [address] allopurinol d/w rn - mother - pt - nilotinib will be started now they will continue same - Patient Problems (1) CML (chronic myelocytic leukemia) Current Visit: Yes Status: Acute Subjective Date of service: 07/14/18 Principal diagnosis: cml blast crisis Objective - Constitutional Vitals: Last Vital Signs Temp 97.0 F L 07/14/18 05:45 Pulse 76 07/14/18 05:45 Resp 16 07/14/18 05:45 BP 97/41 07/14/18 05:45 Pulse Ox 96 07/14/18 05:45 Pain Intensity (0-10): denies any pain General appearance: no acute distress Performance status: 2- selfcare, ambulatory - EENT Eyes: EOM intact ENT: clear oral mucosa Lymph node exam: negative cervical - Neck Neck: normal ROM - Respiratory Respiratory effort: Positive: normal Respiratory: bilateral: CTA - Cardiovascular Heart Sounds: Present: S1 & S2 Extremities: No edema - Gastrointestinal General gastrointestinal: Present: soft, hepatomegaly, splenomegaly Rectal Exam: deferred - Genitourinary Female genitourinary: Present: deferred - Integumentary Integumentary: warm - Musculoskeletal Musculoskeletal: strength equal bilaterally - Neurologic Neurologic: moves all extremities - Psychiatric Psychiatric: appropriate mood/affect - Labs Lab Results: Laboratory Results - last 24 hr 07/13/18 07:57 Sodium 135 L Potassium 4.3 Chloride 99.3 Carbon Dioxide 26 Anion Gap 14 BUN 11 Creatinine 0.7 Estimated GFR > 60 BUN/Creatinine Ratio 16 Glucose 85 Calcium 8.6 Phosphorus 4.70 H Magnesium 1.90 Total Bilirubin 0.40 AST 20 ALT 7 Alkaline Phosphatase 75 Total Protein 6.9 Albumin 3.5 L Albumin/Globulin Ratio 1.0 Medications & Allergies - Medications Allergies/Adverse Reactions: Allergies No Known Allergies Allergy (Unverified 07/03/13 08:29) Home Medications: Home Medications Medication Instructions Recorded Confirmed Last Taken Type No Known Home Medications [No 07/03/13 07/03/13 Unknown History Reported Home Medications] Active Medications: Generic Name Dose Route Start Last Admin Trade Name Freq PRN Reason Stop Dose Admin Acetaminophen 650 mg 07/11/18 22:35 07/12/18 17:27 Tylenol PO 650 mg Q4H PRN Administration Pain MILD(1-3)/Fever >100.5/COOK Allopurinol 100 mg 07/12/18 09:30 07/13/18 22:27 Zyloprim PO 100 mg TID JOEL Administration Hydroxyurea 500 mg 07/12/18 09:30 07/13/18 22:27 Hydrea PO 500 mg TID JOEL Administration Ondansetron HCl 4 mg 07/11/18 22:35 Zofran IV Q8H PRN Nausea And Vomiting Oxycodone/Acetaminophen 1 tab 07/11/18 22:35 Percocet 5/325 PO Q6H PRN Pain, Moderate (4-6) Sodium Chloride 10 ml 07/12/18 10:00 07/13/18 22:30 Sodium Chloride Flush Syringe 10 Ml IV 10 ml BID JOEL Administration Sodium Chloride 10 ml 07/11/18 22:35 Sodium Chloride Flush Syringe 10 Ml IV PRN PRN LINE FLUSH
[2018-07-14 07:50] LABS: Hematocrit 23.4 % (30.3-42.9); Hemoglobin 7.4 gm/dl (10.1-14.3); Mean Corpuscular HGB Conc 32 % (30-34); Mean Corpuscular Volume 82 fl (79-97); Platelet Count 669 K/mm3 (140-440); Red Blood Count 2.85 M/mm3 (3.65-5.03)
[2018-07-14 08:00] LABS: Red Cell Distribution Width 21.8 % (13.2-15.2)
[2018-07-14] MEDS: HYDREA PO SCH ×2 (09:22→13:18)
[2018-07-14 09:23] LABS: Alanine Aminotransferase 10 units/L (7-56); Albumin 3.6 g/dL (3.9-5); BUN/Creatinine Ratio 16; Blood Urea Nitrogen 11 mg/dL (7-17); Calcium 8.7 mg/dL (8.4-10.2); Hemolysis Index 2
[2018-07-14] MEDS: SODIUM CHLORIDE FLUSH SYRINGE 10 ML IV SCH ×3 (09:23→13:19)
[2018-07-14] MEDS: ZYLOPRIM PO SCH ×2 (09:23→13:18)
[2018-07-14] MEDS ORDERED: NILOTINIB PO SCH (10:00)
[2018-07-14 12:47] LABS: Anisocytosis 1+; Band Neutrophils # (Manual) 36.5 K/mm3; Monocytes % (Manual) 0 % (0.0-7.3); Myelocytes # (Manual) 60.9 K/mm3; Platelet Estimate Cons; Promyelocytes # (Manual) 18.3 K/mm3; Total Cells Counted 100
--- NOTE | 2018-07-14 14:54 | Discharge Summary ---
Providers - Providers Date of Admission: 07/11/18 22:35 Date of discharge: 07/14/18 Attending physician: ERASMO JURADO 07/11/18 19:06 Consult to Physician [CONS] Routine Comment: dr.maken nelson Consulting Provider: JANE MELGAR Physician Instructions: Reason For Exam: AML, Severe leukocytosis Primary care physician: [facility], [place] Hospitalization Reason for admission: nausea and vomiting and anemia/ Condition: Fair Pertinent studies: CT abdomen and pelvis; hepatomegaly, marked spleenomegaly no evidence of diverticulitis Hospital course: 22-year-old -Citizen Of [place] female with a history of CML who presented to the ED on account of one month history of nausea without vomiting. She has associated left lower abdominal pain, urinary frequency and urgency. She denies fever, chills, constipation or diarrhea. No chest pain, shortness of breath, palpitation, cough, sore throat, runny nose or congestion, leg swelling, orthopnea or PND. No headaches, lightheadedness, syncope or loss of consciousness. Patient stated that she was recently found to have enlarged spleen during an evaluation for varicose vein., Patient was symptomatically managed evaluated by hematology oncologist, added Nilotinib to medications, and Dr. 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 Vallejo gave samples of this medication to the patient] --Acute on chronic anemia: Patient received 1 unit PRBC, Hb improved to 6.1-7.3 Transfusion additional PRBC as needed --Massive hepatosplenomegaly: Supportive care --DVT prophylaxis with SCD Disposition: Discharge and follow Follow Hem/onc and PMD per schedule Plan of care is reviewed with the patient, mother at the bedside,And her nurse Disposition: - TO HOME OR SELFCARE Time spent for discharge: 32 min Core Measure Documentation - Palliative Care Palliative Care/ Comfort Measures: Not Applicable - Core Measures Any of the following diagnoses?: none Exam - Constitutional Vitals: Temp Pulse Resp BP Pulse Ox 97.8 F 90 20 121/62 99 07/14/18 11:19 07/14/18 11:19 07/14/18 11:19 07/14/18 11:19 07/14/18 11:19 General appearance: Present: no acute distress, well-nourished - EENT Eyes: Present: PERRL, EOM intact - Neck Neck: Present: supple, normal ROM - Respiratory Respiratory effort: normal Respiratory: bilateral: diminished, negative: rales, rhonchi, wheezing - Cardiovascular Rhythm: regular Heart Sounds: Present: S1 & S2 - Extremities Extremities: no ischemia, No edema - Abdominal General gastrointestinal: Present: soft, non-tender, non-distended, normal bowel sounds - Integumentary Integumentary: Present: clear, warm - Musculoskeletal Musculoskeletal: strength equal bilaterally - Psychiatric Psychiatric: appropriate mood/affect, cooperative - Neurologic Neurologic: CNII-XII intact, moves all extremities Plan Activity: no restrictions Diet: regular Additional Instructions: Patient advised to follow with hematology oncologist per schedule Follow up with: [place] ALONDRA MEYERS MD [Primary Care Provider] - 3-5 Days JANE MELGAR MD [Staff Physician] - 07/15/18 Prescriptions: Hydroxyurea [Hydrea] 500 mg PO TID #9 capsule Allopurinol [Zyloprim] 100 mg PO TID #90 tablet
[2018-07-14] MEDS ORDERED: MORPHINE IV ONE (15:14)
[2018-07-14 16:55] VITALS: BP 116/60
== END 2018-07-14 17:25 | disposition home or self-care (01) | DRG 812 ==
LOC: ED 15:48 → 3A 22:35
PROVIDERS: ADMIT Internal Medicine; ATTEND Internal Medicine
PROC: 30233N1 Transfusion of Nonautologous Red Blood Cells into Peripheral Vein, Percutaneous Approach (ICD-10-PCS; principal; 2018-07-12)
DX: D64.9 Anemia, unspecified (principal); C92.10 Chronic myeloid leukemia, BCR/ABL-positive, not having achieved remission; R16.2 Hepatomegaly with splenomegaly, not elsewhere classified; Z92.21 Personal history of antineoplastic chemotherapy
CPT/HCPCS: 36415; 74177; 80048; 80053; 80076; 81001; 83615; 83690; 83735; 84100; 84550; 84703; 85007; 85025; 85027; 86850; 86900; 86901; 86920; 88184; 88185; 93005; 93010; G0378; J2270; J7030; J7040; P9016; Q9967